=== PATIENT | male | born 1995 | race Caucasian/White ===

== ENCOUNTER 2017-08-04 13:42 | Inpatient (IN) | payer OTHER ==
[~2017-08-04] VITALS: Ht 177.8 cm; Wt 89.1 kg
[2017-08-04 15:17] LABS: MEAN CORPUSCULAR HGB CONC 35.7 g/dl (32.0-36.5); RED CELL DISTRIBUTION WIDTH 12.4 % (11.5-14.5); WHITE BLOOD COUNT 6.3 K/mm3 (4.0-10.0)
[2017-08-04 15:31] LABS: METHADONE URINE NEGATIVE (NEGATIVE)
[2017-08-04 15:34] LABS: ALBUMIN 3.8 GM/DL (3.2-5.2); ALBUMIN/GLOBULIN RATIO 1.31 (1.00-1.93); ALKALINE PHOSPHATASE 70 U/L (45-117); ALT/SGPT 19 U/L (12-78); ANION GAP 12 MEQ/L (8-16); AST/SGOT 11 U/L (15-37); BILIRUBIN,DIRECT 0.2 MG/DL (0.0-0.2); BILIRUBIN,TOTAL 0.7 MG/DL (0.2-1.0); BLOOD UREA NITROGEN 12 MG/DL (7-18); CALCIUM LEVEL 9.1 MG/DL (8.5-10.1); CARBON DIOXIDE LEVEL 25 MEQ/L (21-32); CHLORIDE LEVEL 106 MEQ/L (98-107); CREATININE FOR GFR 1.21 MG/DL (0.70-1.30); GLUCOSE, FASTING 88 MG/DL (70-105); POTASSIUM SERUM 3.8 MEQ/L (3.5-5.1); SODIUM LEVEL 143 MEQ/L (136-145); TOTAL PROTEIN 6.7 GM/DL (6.4-8.2)
[2017-08-04] MEDS ORDERED: MOM 30ML SUSPENSION UDC PO PRN (17:00)
[2017-08-04] MEDS ORDERED: CitaloPRAM (CeleXA) 20 MG TAB PO ONE (17:00)
[2017-08-04] MEDS ORDERED: ACETAMINOPHEN TAB 650MG DOSE (2X325MG) PO PRN (17:00)
[2017-08-04] MEDS ORDERED: MAALOX 30 ML SUSP *UDC PO PRN (17:00)
[2017-08-04 19:39] VITALS: BP 117/68
[2017-08-04] MEDS ORDERED: INFLUENZA QUADRIVALENT PF VACCINE 0.5ML SYRINGE (90686) IM ONE (20:30)
[2017-08-04] MEDS: traZODone 50 MG TAB PO PRN (22:45)
[2017-08-05 06:46] VITALS: BP 108/53
[2017-08-05] MEDS: CitaloPRAM (CeleXA) 20 MG TAB PO SCH (08:58)
--- NOTE | 2017-08-05 09:10 | HPEPDOC ---
Medical History and Physical Date of Admission Aug 04, 2017 at 16:35 History and Physical PCP: [facility] ATTENDING: Dr. Charlie Davis HPI: 22 yo M admitted to [facility] for unspecified depressive disorder, being medically examined today. No acute medical complaints today. Patient is using crutches related to left knee injury occurred during training approximately 3-4 weeks ago. He was seen by PCP with x-ray and MRI completed indicating minor meniscal tear. He currently uses crutches for ambulation. He states pain is controlled. He has not been having any erythema or edema. He has follow-up arranged. Denies any fevers, chills, weakness, fatigue, HOPPER, CP, SOB, cough, palpitations, abdominal pain, N/V/D or changes in bowel or bladder habits. PMHx: Depression Left knee meniscal tear PSHX: Denies SOCHX: Resides in: [place], from [facility] Marital Status: Single Kids: None Employment: Active duty Tobacco use: Denies ETOH: Denies Illicit Drugs: Denies IV Drug Use: Denies Tattoos done unprofessionally: Denies FAMHX: Mother: Alive, well Father: Alive, well Siblings: One brother Alive, well Children: None Unexpected deaths due to medical reasons: None. ROS: As noted in HPI, otherwise 11pt ROS of systems reviewed and unremarkable. PE: GEN: 22 yo M, appears stated age. Well-nourished, well developed. No acute distress. Alert and oriented x 3. Pleasant, interactive. HEENT: Normocephalic, atraumatic. Pupils are equal, round, and reactive to light. Extraocular movements are intact. No nystagmus appreciated. Sclera are nonicteric. Conjunctiva without injection. Nose midline. Nasal turbinates without bogginess. EACs both patent BL. TMs both visualized and bradley with good cone of light, no bulging or erythema. No facial asymmetry. Moist mucous membranes. Dentition fair. Pharynx pink and moist, no cobblestoning. Neck supple , trachea midline. No lymphadenopathy or thyromegaly appreciated. CHEST: Regular rate and rhythm, +S1, +S2 LUNGS: Clear to auscultation bilaterally. No wheezes, rales, or rhonchi. Breathing appears symmetric and easy. Patient is speaking in full sentences. No accessory muscle use. ABD: Round, soft, non-tender, non-distended. +Bowel sounds throughout. No rebound or guarding. No costovertebral angle tenderness. EXT: Pulses 2+ bilaterally dorsalis pedis and radial. No lower extremity edema appreciated. SKIN: Staves, dry, warm. Capillary refill <2sec. No rashes. NEURO: Alert and oriented x 3. Cranial nerves III-XII are intact. No focal deficits appreciated. Patient is using crutches for ambulation EKG: Pending. A&P: 22 yo M admitted to [facility] for unspecified depressive disorder 1. Psych. Plan per Psychiatry. Obtain baseline EKG to assure the safety of psychiatric medications as they can prolong the QT interval. 2. Follow up with PCP on discharge. 3. Left knee meniscal tear. Tylenol 650 mg every 6 hours as needed. Continue ambulation with crutches. Outpatient follow-up as arranged. 4. Staff member Lenin present throughout exam. Vital Signs Vital Signs Date Time Temp Pulse Resp B/P (MAP) Pulse Ox O2 Delivery O2 Flow Rate FiO2 08/05/17 06:46 96.3 59 16 108/53 (71) 08/04/17 19:39 97 Room Air Laboratory Data Labs 24H Laboratory Tests 2 08/04/17 14:50: Anion Gap 12, Calcium Level 9.1, Aspartate Amino Transf (AST/SGOT) 11L, Alanine Aminotransferase (ALT/SGPT) 19, Alkaline Phosphatase 70, Total Bilirubin 0.7, Direct Bilirubin 0.2, Total Protein 6.7, Albumin 3.8, Albumin/Globulin Ratio 1.31, Thyroid Stimulating Hormone (TSH) 1.290, Salicylates Level < 1.7L, Urine Amphetamines Screen NEGATIVE, Urine Benzodiazepines Screen NEGATIVE, Urine Opiates Screen NEGATIVE, Urine Methadone Screen NEGATIVE, Acetaminophen Level < 2.0L, Urine Barbiturates Screen NEGATIVE, Urine Phencyclidine Screen NEGATIVE, Urine Cocaine Metabolite Screen NEGATIVE, Urine Cannabinoids Screen NEGATIVE, Ethyl Alcohol Level 0.004 CBC/BMP Laboratory Tests 08/04/17 14:50 Red Blood Count 5.45, Mean Corpuscular Volume 87.0, Mean Corpuscular Hemoglobin 31.0, Mean Corpuscular Hemoglobin Concent 35.7, Red Cell Distribution Width 12.4 Home Medications No Active Prescriptions or Reported Meds Allergies Coded Allergies: No Known Allergies (Unverified , 08/04/17) Katherine Anglin Aug 05, 2017 09:10
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
[2017-08-05 18:00] VITALS: BP 120/58
[2017-08-06] MEDS: traZODone 50 MG TAB PO PRN ×2 (00:21→23:13)
[2017-08-06 07:00] VITALS: BP 113/54
[2017-08-06] MEDS: CitaloPRAM (CeleXA) 20 MG TAB PO SCH (08:53)
[2017-08-06] MEDS ORDERED: INFLUENZA QUADRIVALENT PF VACCINE 0.5ML SYRINGE (90686) IM ONE (09:00)
--- NOTE | 2017-08-06 11:55 | ECGEPIP ---
Stationary ECG Study [facility] Test Date: 2017-08-05 Pat Name: TR JERONIMO Department: Room: [place] [address] Gender: M Set Up Worker: ARABELLA : 1995 Requested By: Katherine Anglin Order Number: [id number] Reading MD: Charlie Davis Measurements Intervals Sandy Rate: 69 P: 6 MS: 141 QRS: 45 QRSD: 94 T: 32 QT: 359 QTc: 386 Interpretive Statements SINUS RHYTHM Comparison tracing not on file Electronically Signed On 08-06-2017 11:55:29 EDT by Charlie Davis
[2017-08-06 18:00] VITALS: BP 99/57
--- NOTE | 2017-08-06 18:31 | MHIPN ---
DATE: 08/06/2017 CHIEF COMPLAINT: Says feels a bit better. SUBJECTIVE: Seen for followup in the presence of staff. Says feels a bit better in that he is a little less depressed. Says had a nightmare about his dog. Appetite is fair. MENTAL STATUS EXAMINATION: He is neat. He is cooperative. He is on crutches. He is coherent. No agitation. Slight psychomotor retardation. Affect is restricted in range, with little reactivity. No suicidal thoughts at present, though says he has had them recently. Denies any plans of harming himself. No evidence of psychosis. Cognition grossly intact. Judgment and insight are fair at best. ASSESSMENT: Major depressive disorder. PLAN: Continue current care and observations. Encourage participation and activities in the unit. VITAL SIGNS: Blood pressure 113/54, pulse 64, temperature 97.4
[2017-08-07 07:00] VITALS: BP 106/55
[2017-08-07] MEDS: CitaloPRAM (CeleXA) 20 MG TAB PO SCH (08:11)
--- NOTE | 2017-08-07 16:39 | MHIPN ---
DATE: 08/07/2017 CHIEF COMPLAINT: He says he feels okay. SUBJECTIVE: He is seen for followup. He indicates he feels okay, but acknowledges he continues to feel depressed and anxious. He says he had broken sleep, did not feel rested. He has been trying to take a nap during the day. He says he was visited by his mother, and he liked that. MENTAL STATUS EXAMINATION: He is neat, appears somewhat tired. He is cooperative. He is coherent, though answers questions briefly, logically. Affect is restricted in range. Denies active suicidal thoughts or intents. No homicidal ideas or intents at present. No evidence of any psychosis. Cognition grossly intact. Insight and judgment fair. ASSESSMENT: Major depressive disorder. He continues to looked depressed, with poverty of speech. PLAN: He is to continue with current care, including the Celexa 20 mg daily. He is to be encouraged to participate in activities on the unit as tolerated. VITAL SIGNS: These are as listed. Blood pressure 106/55, pulse 78, temperature 98.
[2017-08-07 18:00] VITALS: BP 118/59
[2017-08-07] MEDS: traZODone 50 MG TAB PO PRN (22:58)
[2017-08-07] MEDS: hydrOXYzine 50 MG TAB PO PRN (23:27)
[2017-08-08 06:00] VITALS: BP 98/54
[2017-08-08] MEDS: CitaloPRAM (CeleXA) 20 MG TAB PO SCH (09:00)
--- NOTE | 2017-08-08 15:58 | IPN ---
DATE: 08/08/2017 Mr. Smith has been depressed several months. He has been not showing up for his duties. 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 During an evaluation of him, he was found with a knife and it was treated as a suicidal threat. He states he was thinking of slitting his throat. He is under stress because his parents are and they are in severe financial difficulties. He is having to send them significant amount of money and also gave them his signing bonus. In addition, he has broken up with his girlfriend Michelle, who moved away to another post. She was his first girlfriend. He is noted by others, that under stress he shuts down and seems unable to cope. He is presently under an article 15 by the [facility]. It is reported by his parents, to my understanding that they did not see his depression. In addition, he has lost his dog who was staying with his parents and was run over. He has been in the [employer] one year. He does not want to be in the [employer]. He has feelings of worthlessness, and is concerned about money troubles. His speech is slow. Thought process is slow. No loose associations. Judgment and insight are unremarkable. He is fully oriented. Mood is low. Affect is flat. He has a full fund of knowledge. PLAN: Medially I am going to increase his citalopram and we will evaluate his depression as we progress. Presently I would consider him suicidal and depressed. DIAGNOSES: Major depressive illness. Numerous stressors.
[2017-08-08 18:00] VITALS: BP 111/58
[2017-08-08] MEDS: traZODone 100 MG TAB PO PRN (23:07)
[2017-08-09 06:00] VITALS: BP 113/56
[2017-08-09] MEDS: CitaloPRAM (CeleXA) 20 MG TAB PO SCH (09:47)
--- NOTE | 2017-08-09 10:17 | IPN ---
DATE: 08/09/2017 Mr. Smith today is on his medication change of citalopram 40 and trazodone 100 mg for sleep. 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 He has numerous concerns, as mentioned yesterday, including his dislike for the [employer], his parents' financial problems, his brother's failure to be accepted into the [employer] league, his first girlfriend having changed bases and left, but to date most of his concerns were of his father's financial difficulties. He claimed to have a severe heaviness in his body and in his thoughts. MENTAL STATUS EXAMINATION: His speech was quiet. His thought process was low. He had no loose associations or abnormal psychotic thoughts. Judgment and insight were poor. He was fully oriented. No difficulties with recent or remote memory. His attention and concentration were adequate. There was no disturbance of language. His mood was low. His affect was extremely downcast and eye contact poor. IMPRESSION: 1. Major depressive illness. 2. Numerous stressors. No change in plans at this time.
[2017-08-09 18:00] VITALS: BP 110/64
[2017-08-09] MEDS: traZODone 100 MG TAB PO PRN (22:55)
[2017-08-10 06:57] VITALS: BP 126/91
[2017-08-10] MEDS: CitaloPRAM (CeleXA) 20 MG TAB PO SCH (08:39)
--- NOTE | 2017-08-10 15:09 | IPN ---
DATE: 08/10/2017 I met with Mr. Smith today, as well as discussed him with staff. The patient states that he is significantly feeling better. He states that he has not previously told many people that he is bisexual. He states that he has formed a friendship with one of the other patients, who he is attracted to. He states that since then he is happier that he woke up earlier, that his knee feels better. 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 I explained to the patient that in our experience these relationships do not seem to work out well. Nonetheless, the patient's mood was better, eye contact was improved. The patient apparently has stated that he will return to the [employer]. 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 MENTAL STATUS EXAMINATION: Speech was normal. No disturbance of thought process. No loose associations. No abnormal psychotic thoughts. Judgment and insight seem poor. He is fully oriented. Recent and remote memory intact. Attention and concentration intact. No disturbance of language. The patient has a full fund of knowledge. Mood is improved. Affect is brighter. DIAGNOSES: 1. Major depressive illness. 2. Rule out personality disorder.
[2017-08-10 18:26] VITALS: BP 124/65
[2017-08-10] MEDS: traZODone 100 MG TAB PO PRN (22:42)
[2017-08-11 07:05] VITALS: BP 121/67
[2017-08-11] MEDS: CitaloPRAM (CeleXA) 20 MG TAB PO SCH (09:09)
--- NOTE | 2017-08-11 13:10 | IPN ---
DATE: 08/11/2017 I met with Mr. Smith today. His mood seems less ebullient than yesterday. He states that it is because he believed that he will have been discharged. He states that nothing is bothering him. He has not been thinking much. His knee pain is not significant. Yesterday he revealed that he was bisexual and that he was interested in a relationship with a patient who left yesterday. Speech is slow. Thought process is mildly slow. No associations. No psychotic thoughts. Judgment and insight are poor. Orientation is full in three spheres. No difficulties with recent or remote memory. Attention and concentration are intact. No disturbances of language. Full fund of knowledge. Mood is fair. Affect is neutral. PLAN: Discuss with discharge team tomorrow whether in fact to transfer to half-way treatment based on our concern about his general overall condition and difficulties that he has had and presently in the service. He is presently on citalopram 40 mg daily. DIAGNOSES: 1. Major depression. 2. Personality disorder, not otherwise specified.
[2017-08-11 18:00] VITALS: BP 105/56
[2017-08-11] MEDS: traZODone 100 MG TAB PO PRN (22:16)
[2017-08-12 06:24] VITALS: BP 145/81
[2017-08-12] MEDS: CitaloPRAM (CeleXA) 20 MG TAB PO SCH (09:12)
[2017-08-12] MEDS: hydrOXYzine 50 MG TAB PO PRN (14:12)
--- NOTE | 2017-08-12 14:33 | MHIPN ---
DATE: 08/12/2017 Mr. Smith will be meeting today with his [employer]. Our concerns are that he is stating all is well since having met another patient on the unit and publicly declaring his bisexuality. However, our concerns are that he seems to think many things will change when he returns to [place] regarding his assignments, his jobs and his work. For this reason, we initiated that he meet with [facility] [employer] over these issues. He is presently taking citalopram 40 mg, trazodone for sleep as needed, and Atarax 50 mg every 4 hours as needed. MENTAL STATUS EXAMINATION: Speech is normal, not quiet. No disturbance of thought process. No loose associations. No psychotic thoughts. Judgment and insight are fair. Orientation is full in three spheres. Recent and remote memory intact. Attention and concentration intact. He has a full fund of knowledge. Mood is neutral. Affect is neutral. Noted that the patient also has thought about limiting the amount of money he sends his family who have had financial difficulties. DIAGNOSIS: Major depression. Personality disordered traits. Discharge planning will be based on results of [facility] meeting.
[2017-08-12 14:48] VITALS: BP_SYST 136; BP_DIAS 65; BP_DIAS 66
[2017-08-12 18:26] VITALS: BP 136/65
[2017-08-12] MEDS: traZODone 100 MG TAB PO PRN (22:49)
[2017-08-13 07:14] VITALS: BP 102/53
[2017-08-13] MEDS: CitaloPRAM (CeleXA) 20 MG TAB PO SCH (09:33)
--- NOTE | 2017-08-13 13:29 | MHIPN ---
DATE: 08/13/2017 I met with Gordon Smith today. Yesterday, I placed him on a one-to-one following his meeting with his chain of command. Today, he denies any suicidal ideation or intent, and I removed him from one-to-one. 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 He is presently on citalopram 40 mg. MENTAL STATUS EXAMINATION: The patient is downcast and sad. Speech is normal. Thought processes are not indicating any disorder. No loose associations or psychotic thoughts. Judgment and insight are poor. He is fully oriented. Recent and remote memory intact. Attention and concentration intact. No disturbance of language. He has a full fund of knowledge. Mood is low and affect is sad. DIAGNOSIS: Major depression. Personality disorder. At this point, I am not comfortable sending him back to [place] and I am hoping that he will agree to long-term treatment. 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
[2017-08-13 18:20] VITALS: BP 110/60
[2017-08-13] MEDS: traZODone 100 MG TAB PO PRN (23:59)
[2017-08-14 06:27] VITALS: BP 104/50
[2017-08-14] MEDS: CitaloPRAM (CeleXA) 20 MG TAB PO SCH (09:18)
[2017-08-14 18:42] VITALS: BP 130/60
[2017-08-14] MEDS: traZODone 100 MG TAB PO PRN (23:04)
[2017-08-15 06:45] VITALS: BP 112/60
[2017-08-15] MEDS: CitaloPRAM (CeleXA) 20 MG TAB PO SCH (08:47)
--- NOTE | 2017-08-15 12:49 | MHIPN ---
DATE: 08/15/2017 Discussed patient with staff. The patient had apparently a family meeting this weekend where he discussed his bisexuality with parents who rejected that. The patient states he has a "plan". He plans to do puzzles, call his friends more, and [place]. He states his mother and father not accepting of his claim of bisexuality will nonetheless "always love him". My impression is that this young man is exceptionally unstable and needs to be going to a longer term care based on his history and his presentation and progress here on the unit. He is presently on citalopram and is having no difficulties with it. Speech is normal. No disturbance of thought processes. Judgment and insight are poor. No loose associations. No psychotic thoughts. He is fully oriented. Recent and remote memory are intact. He has no difficulties with attention and concentration. He has a full fund of knowledge. Mood is low. Affect is sad. The patient is no longer suicidal and has been taken off of one-to-one. IMPRESSION: Major depression. PLAN: Encourage long treatment.
[2017-08-15 18:00] VITALS: BP 135/77
[2017-08-15] MEDS: traZODone 100 MG TAB PO PRN (23:01)
[2017-08-16 06:20] VITALS: BP 113/56
[2017-08-16] MEDS: CitaloPRAM (CeleXA) 20 MG TAB PO SCH (08:55)
--- NOTE | 2017-08-16 11:26 | MHIPN ---
DATE: 08/16/2017 Gordon Smith is extremely downcast. He states he is upset people are leaving. He feels he is losing friends. He states he is feeling very alone. He states his sleep is very poor and he did not eat breakfast. He is now agreeing that he thinks he needs long term care pharmacist treatment. He is very depressed. He states in middle school he was extremely depressed and then had years of feeling good. He states now his moods change rapidly in response to situations. He is presently on citalopram 40 mg. There has been no significant improvement in his mood. We are agreeing he needs long term care pharmacist treatment. Speech is slow. Thought process is demonstrating poverty of thought. No loose associations. No psychotic thoughts. Judgment and insight poor. Orientation in three spheres is present. Recent and remote memory intact. No disturbance of attention and concentration. Affect sad, downcast, with poor eye contact. No disturbance of language. Fund of knowledge is fair. Mood is low. IMPRESSION: Major depression. Personality disorder. Agree with prison treatment.
[2017-08-16] MEDS: hydrOXYzine 50 MG TAB PO PRN ×2 (13:33→23:16)
[2017-08-16 18:00] VITALS: BP 145/88
[2017-08-16] MEDS: traZODone 100 MG TAB PO PRN (22:57)
[2017-08-17 07:01] VITALS: BP 88/50
[2017-08-17] MEDS: CitaloPRAM (CeleXA) 20 MG TAB PO SCH (09:11)
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
[2017-08-17 18:00] VITALS: BP 115/65
[2017-08-17] MEDS: traZODone 100 MG TAB PO PRN (23:02)
[2017-08-18 06:21] VITALS: BP 117/59
[2017-08-18] MEDS: CitaloPRAM (CeleXA) 20 MG TAB PO SCH (08:50)
--- NOTE | 2017-08-18 15:26 | MHIPN ---
DATE: 08/18/2017 Gordon Smith continues downcast. He states he has been trying to call his mother and she will not answer his phone call. He will not call his father. He is continuing to struggle with what he considers identity issues since he was brought up with strict rules against homosexuality and he has declared to his parents that he is bisexual. I see no particular mood improvement. The patient is downcast. Our plan is to send him to long-term care. Speech is slow. Thought processes are slow. No loose associations. No psychotic thoughts. Judgment and insight are fair. He is fully oriented. Recent and remote memory intact. Attention and concentration good. No disturbance of language. Full fund of knowledge. Mood is low. Affect is sad. DIAGNOSIS: Major depressive illness.
[2017-08-18] MEDS ORDERED: CELE20TA PO (17:41)
[2017-08-18 18:00] VITALS: BP 131/67
--- NOTE | 2017-08-18 18:02 | MHDS ---
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 No deployment and has no children. Originally from [place]. History of depression and bullying in middle school, was in psychotherapy for 2 months, no psychotropic medications. He reported he was going through numerous stressors, including his parents going through a divorce, one month his father being jobless, his mother getting laid off today, and concerns about his brother who has joined the [employer], who was kicked out of hockey. His depression is characterized by feeling hopeless, decrease in appetite, decrease in energy, oversleeping, late being to work, and being placed on an Article 15 for extra duties, feeling guilty about his girlfriend who accused him of not being "invested in the relationship." Took his personal knife to work and was sitting with that knife with [employer]. The patient was thinking about hurting himself with that knife. COURSE ON THE UNIT: He maintained depression throughout his entire stay. At one point, he did cheer up when he began to have a relationship with another male on the unit, at which time he declared that he was bisexual and had been hiding it for many years. He had a visit with his parents where he openly stated he was bisexual and apparently, according to him, they rejected him and now do not answer their phones. Patient began to think that many things would change if he returned to [place]. For that reason, we had him meet with [employer] to discuss his duties. He was placed, on 08/13/2017, on a one-to-one following his meeting with [employer] and later denied suicidal ideation. He stated he wanted to leave the [employer] and we suggested long-term care. He was placed on Celexa 40 mg. He began to come up with solutions for his problems; that he would do more puzzles, call his friends more, [place]. He continued to look profoundly depressed and his momentary improvement forming a relationship with a patient on the unit seemed to disappear. He became upset that people were leaving that he had made friends with and continued to be downcast. He continued on citalopram 40 mg and agreed to our suggestion that he seek long-term care. DIAGNOSES: Major depression. Sexual identity confusion. Numerous stressors. His CBC was unremarkable, serum chemistry was unremarkable. Toxicology screen was positive for 0.[address] Anglin, he was placed on Tylenol 650 mg every 6 hours and continued to ambulate with crutches due to a left knee meniscal tear. DISCHARGE DIAGNOSES: As mentioned above. DISCHARGE MENTAL STATUS EXAMINATION: Speech is slow. Thought processes slow. No loose hallucinations. No psychotic thoughts. Judgment and insight are poor. Patient is fully oriented. No disturbance of recent and remote memory. Attention and concentration are poor. No disturbance of language. Full fund of knowledge. Mood is low. Affect is sad. The patient is to be discharged back to chain of command and will be transported to a long-term hospital as per chain of command.
[2017-08-18] MEDS: traZODone 100 MG TAB PO PRN (22:29)
[2017-08-19] MEDS: CitaloPRAM (CeleXA) 20 MG TAB PO SCH (03:52)
== END 2017-08-19 04:30 | DRG 881 ==
LOC: EDSEX 13:42 → M ED 13:42 → M ED INP 16:35 → M PSY 19:15
PROVIDERS: ADMIT Psychiatry & Neurology Psychiatry; ATTEND Psychiatry & Neurology Child & Adolescent Psychiatry
DX: F32.9 Major depressive disorder, single episode, unspecified (principal); S83.207D Unspecified tear of unspecified meniscus, current injury, left knee, subsequent encounter; X58.XXXD Exposure to other specified factors, subsequent encounter; Y99.9 Unspecified external cause status

== ENCOUNTER 2017-10-20 13:23 | Inpatient (IN) | payer OTHER ==
[~2017-10-20] VITALS: Ht 177.8 cm; Wt 88.0 kg
[~2017-10-20 13:23] MED LIST: CELE20TA PO
[2017-10-20] MEDS ORDERED: SUDATAB18 PO (13:48)
[2017-10-20] MEDS ORDERED: PRAZ1CAP PO (13:48)
[2017-10-20] MEDS ORDERED: IBUP1TAB7 PO (13:48)
[2017-10-20] MEDS ORDERED: TRAZ1TAB14 PO ×2 (13:48→16:33)
[2017-10-20 14:05] LABS: MEAN CORPUSCULAR HGB CONC 35.1 g/dl (32.0-36.5); MEAN CORPUSCULAR VOLUME 85.4 fl (80.0-96.0); PLATELET COUNT, AUTOMATED 202 10^3/uL (150-450); RED CELL DISTRIBUTION WIDTH 12.4 % (11.5-14.5); WHITE BLOOD COUNT 7.4 10^3/uL (4.0-10.0)
[2017-10-20 14:36] LABS: ALBUMIN 3.7 GM/DL (3.2-5.2); ALBUMIN/GLOBULIN RATIO 1.16 (1.00-1.93); ALKALINE PHOSPHATASE 69 U/L (45-117); ALT/SGPT 18 U/L (12-78); ANION GAP 7 MEQ/L (8-16); AST/SGOT 11 U/L (7-37); BILIRUBIN,DIRECT 0.2 MG/DL (0.0-0.2); BILIRUBIN,TOTAL 0.6 MG/DL (0.2-1.0); BLOOD UREA NITROGEN 13 MG/DL (7-18); CALCIUM LEVEL 8.9 MG/DL (8.5-10.1); CARBON DIOXIDE LEVEL 26 MEQ/L (21-32); CHLORIDE LEVEL 108 MEQ/L (98-107); CREATININE FOR GFR 1.18 MG/DL (0.70-1.30); GLUCOSE, FASTING 108 MG/DL (70-105); POTASSIUM SERUM 3.8 MEQ/L (3.5-5.1); SODIUM LEVEL 141 MEQ/L (136-145); TOTAL PROTEIN 6.9 GM/DL (6.4-8.2)
[2017-10-20 15:14] LABS: METHADONE URINE NEGATIVE (NEGATIVE)
[2017-10-20] MEDS ORDERED: MAALOX 30 ML SUSP *UDC PO PRN (16:30)
[2017-10-20] MEDS ORDERED: traZODone 50 MG TAB PO PRN (16:30)
[2017-10-20] MEDS ORDERED: ACETAMINOPHEN TAB 650MG DOSE (2X325MG) PO PRN (16:30)
[2017-10-20] MEDS ORDERED: MOM 30ML SUSPENSION UDC PO PRN (16:30)
[2017-10-20] MEDS ORDERED: CITA20TA4 PO (16:33)
[2017-10-20] MEDS ORDERED: PRAZ2CAP PO (16:33)
[2017-10-20] MEDS ORDERED: PSEU60TA PO (16:33)
[2017-10-20] MEDS ORDERED: VOLT1GEL15 TOP (16:33)
[2017-10-20] MEDS ORDERED: IBUP1TAB6 PO (16:33)
[2017-10-20] MEDS ORDERED: FLON1SPR (16:33)
[2017-10-20 20:20] VITALS: BP 130/82
[2017-10-20] MEDS ORDERED: IBUPROFEN 600 MG TAB PO PRN (22:00)
[2017-10-20] MEDS: PRAZOSIN 1 MG CAP PO SCH (22:32)
[2017-10-20] MEDS: traZODone 50 MG TAB PO SCH (22:32)
[2017-10-21 06:13] VITALS: BP 113/57
[2017-10-21] MEDS ORDERED: CitaloPRAM (CeleXA) 20 MG TAB PO SCH (09:00)
[2017-10-21] MEDS: IBUPROFEN 600 MG TAB PO SCH (09:37)
--- NOTE | 2017-10-21 09:43 | HPEPDOC ---
[facility] Medical History & Physical Date of Admission Oct 20, 2017 History and Physical PCP: [facility] ATTENDING: Dr. Charlie Davis HPI: 22 yo M admitted to [facility] for unspecified depressive disorder, being medically examined today. The patient was most recently admitted to [facility] 08/04/17 through 08/19/17. History is taken from the chart. Patient is declining to participate with history or physical exam at this time. There are no voice complaints or reports of fevers, chills, weakness, fatigue, HOPPER, CP, SOB, cough, palpitations, abdominal pain, N/V/D or changes in bowel or bladder habits. PMHx: Depression History of Left knee meniscal tear PSHX: Denies SOCHX: Resides in: [place], from [facility] Marital Status: Single Kids: None Employment: Active duty Tobacco use: Denies ETOH: Denies Illicit Drugs: Denies IV Drug Use: Denies Tattoos done unprofessionally: Denies FAMHX: Mother: Alive, well Father: Alive, well Siblings: One brother Alive, well Children: None Unexpected deaths due to medical reasons: None. ROS: Patient declines to provide history at this time. PE: Patient declines to participate with physical exam at this time. EK08/05/17. SINUS RHYTHM A&P: 22 yo M admitted to [facility] for unspecified depressive disorder 1. Psych. Plan per Psychiatry. EKG on file. 2. Follow up with PCP on discharge. 3. History of Left knee meniscal tear. Patient remains on ibuprofen 600 mg by mouth 1 daily. Tylenol 650 mg every 6 hours as needed. Outpatient follow-up as arranged. 4. Staff member Ed assisted in attempting exam. Vital Signs Vital Signs Date Time Temp Pulse Resp B/P (MAP) Pulse Ox O2 Delivery O2 Flow Rate FiO2 10/21/17 06:13 98.3 68 12 113/57 (75) 10/20/17 20:25 98 Room Air Laboratory Data Labs 24H Laboratory Tests 2 10/20/17 13:50: Nucleated Red Blood Cells % (auto) 0.0, Anion Gap 7L, Calcium Level 8.9, Aspartate Amino Transf (AST/SGOT) 11, Alanine Aminotransferase (ALT/SGPT) 18, Alkaline Phosphatase 69, Total Bilirubin 0.6, Direct Bilirubin 0.2, Total Protein 6.9, Albumin 3.7, Albumin/Globulin Ratio 1.16, Thyroid Stimulating Hormone (TSH) 0.946, Salicylates Level < 1.7L, Urine Amphetamines Screen NEGATIVE, Urine Benzodiazepines Screen NEGATIVE, Urine Opiates Screen NEGATIVE, Urine Methadone Screen NEGATIVE, Acetaminophen Level < 2.0L, Urine Barbiturates Screen NEGATIVE, Urine Phencyclidine Screen NEGATIVE, Urine Cocaine Metabolite Screen NEGATIVE, Urine Cannabinoids Screen NEGATIVE, Ethyl Alcohol Level < 0.003 CBC/BMP Laboratory Tests 10/20/17 13:50 Red Blood Count 5.40, Mean Corpuscular Volume 85.4, Mean Corpuscular Hemoglobin 30.0, Mean Corpuscular Hemoglobin Concent 35.1, Red Cell Distribution Width 12.4 Home Medications Scheduled Citalopram Hydrobromide (Citalopram Hydrobromide) 20 Mg Tab, 20 MG PO DAILY Ibuprofen (Ibuprofen) 600 Mg Tab, 600 MG PO DAILY Prazosin Hcl (Prazosin HCl) 2 Mg Cap, 4 MG PO QHS Trazodone HCl (Trazodone HCl) 150 Mg Tab, 150 MG PO QHS Scheduled PRN (Voltaren) 1 % Gel, 1 DOSE TOP QID PRN for PAIN apply to knees (Flonase Allergy Relief) 50 Mcg/Act Spr, 2 SPRAYS NA DAILY PRN for NASAL CONGESTION Ibuprofen (Ibuprofen) 600 Mg Tab, 600 MG PO DAILY PRN for PAIN Pseudoephedrine (Pseudoephedrine HCl) 60 Mg Tab, 60 MG PO Q6H PRN for NASAL CONGESTION Allergies Coded Allergies: No Known Allergies (Unverified , 08/04/17) Katherine Anglin Oct 21, 2017 09:43
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
[2017-10-21 18:00] VITALS: BP 125/61
[2017-10-21] MEDS: PRAZOSIN 1 MG CAP PO SCH (21:19)
[2017-10-21] MEDS: traZODone 50 MG TAB PO SCH (21:20)
[2017-10-22 06:57] VITALS: BP 135/59
[2017-10-22] MEDS: IBUPROFEN 600 MG TAB PO SCH (10:03)
[2017-10-22] MEDS: CitaloPRAM (CeleXA) 10 MG TABLET PO SCH (10:04)
--- NOTE | 2017-10-22 17:58 | MHIPN ---
DATE: 10/22/2017 CHIEF COMPLAINT: Says feels okay. SUBJECTIVE: Seen for followup in the presence of staff. Says has been feeling okay but that he thinks about his problems, though suggests is less anxious, because he is away from them directly. Sleep is broken. MENTAL STATUS EXAMINATION: He is lying in bed, cooperative. Affect is restricted in range but shows reactivity. Is coherent. No evidence of any thoughts of harming himself at present. Denies any suicidal thoughts or intents. No homicidal ideas or intents. No current evidence of any psychosis. Cognition grossly intact. Judgment is questionable. Insight fair. ASSESSMENT: Major depressive disorder. PLAN: Continue current care and observations. Encourage participation in activities in the unit.
[2017-10-22 18:00] VITALS: BP 129/63
[2017-10-22] MEDS: PRAZOSIN 1 MG CAP PO SCH (23:50)
[2017-10-22] MEDS: traZODone 50 MG TAB PO SCH (23:51)
[2017-10-23 06:39] VITALS: BP 115/55
[2017-10-23] MEDS: IBUPROFEN 600 MG TAB PO SCH (09:32)
[2017-10-23] MEDS: CitaloPRAM (CeleXA) 10 MG TABLET PO SCH (09:32)
[2017-10-23 18:00] VITALS: BP 122/61
--- NOTE | 2017-10-23 21:14 | MHIPN ---
DATE: 10/23/2017 CHIEF COMPLAINT: Says feels a bit better. SUBJECTIVE: Seen for followup. Indicates feels a bit better, and that he slept a bit better as well, has been out and about, and has eaten well. MENTAL STATUS EXAMINATION: Neat, cooperative. Affect is a bit broader. He is coherent. No agitation. Denies any thoughts of harming himself or anyone else. No evidence of any psychosis at present. Cognition grossly intact. Judgment is questionable. Insight is fair. ASSESSMENT: Major depressive disorder. PLAN: He is to continue with his current care, and participate in activities in the unit. He will be seeing the assigned treatment team tomorrow.
[2017-10-23] MEDS: traZODone 50 MG TAB PO SCH (22:55)
[2017-10-23] MEDS: PRAZOSIN 1 MG CAP PO SCH (22:55)
[2017-10-24 07:00] VITALS: BP 121/58
[2017-10-24] MEDS: CitaloPRAM (CeleXA) 10 MG TABLET PO SCH (09:34)
[2017-10-24] MEDS: IBUPROFEN 600 MG TAB PO SCH (09:34)
[2017-10-24 18:00] VITALS: BP 106/53
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
[2017-10-24] MEDS: traZODone 50 MG TAB PO SCH (23:02)
[2017-10-24] MEDS: PRAZOSIN 1 MG CAP PO SCH (23:04)
[2017-10-25 07:00] VITALS: BP 98/54
[2017-10-25] MEDS: IBUPROFEN 600 MG TAB PO SCH (09:15)
[2017-10-25] MEDS: CitaloPRAM (CeleXA) 20 MG TAB PO SCH (09:15)
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
[2017-10-25 18:00] VITALS: BP 123/65
[2017-10-25] MEDS: QUEtiapine FUMARATE 100 MG TAB PO SCH (23:17)
[2017-10-25] MEDS: PRAZOSIN 1 MG CAP PO SCH (23:18)
[2017-10-26 06:45] VITALS: BP 133/56
[2017-10-26] MEDS: CitaloPRAM (CeleXA) 20 MG TAB PO SCH (09:56)
[2017-10-26] MEDS: IBUPROFEN 600 MG TAB PO SCH (09:57)
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
[2017-10-26 18:00] VITALS: BP 131/70
[2017-10-26 22:39] VITALS: BP 132/76
[2017-10-26] MEDS: QUEtiapine FUMARATE 100 MG TAB PO SCH (22:39)
[2017-10-26] MEDS: PRAZOSIN 1 MG CAP PO SCH (22:39)
[2017-10-27 06:37] VITALS: BP 112/53
[2017-10-27] MEDS: CitaloPRAM (CeleXA) 20 MG TAB PO SCH (09:34)
[2017-10-27] MEDS: IBUPROFEN 600 MG TAB PO SCH (09:35)
[2017-10-27] MEDS ORDERED: CELE20TA PO (11:46)
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
== END 2017-10-27 14:20 | disposition home or self-care (01) | DRG 885 ==
LOC: M ED 13:23 → M ED INP 16:20 → M PSY 20:27
PROVIDERS: ADMIT Psychiatry & Neurology Psychiatry; ATTEND Psychiatry & Neurology Psychiatry
DX: F33.2 Major depressive disorder, recurrent severe without psychotic features (principal); R45.851 Suicidal ideations; F60.3 Borderline personality disorder; Z79.899 Other long term (current) drug therapy

== ENCOUNTER → 2017-12-12 | Outpatient (CLI) | payer OTHER | LOC: M CARPUL 08:36 | DX: R55 Syncope and collapse (principal) ==

== ENCOUNTER 2017-12-19 14:40 | Inpatient (IN) | payer OTHER ==
[2017-12-19 15:40] LABS: HEMATOCRIT 46.5 % (42.0-52.0); HEMOGLOBIN 16.3 g/dl (14.0-18.0); MEAN CORPUSCULAR HEMOGLOBIN 29.7 pg (27.0-33.0); MEAN CORPUSCULAR HGB CONC 35.1 g/dl (32.0-36.5); MEAN CORPUSCULAR VOLUME 84.7 fl (80.0-96.0); PLATELET COUNT, AUTOMATED 223 10^3/uL (150-450); RED BLOOD COUNT 5.49 10^6/uL (4.30-6.10); RED CELL DISTRIBUTION WIDTH 12.5 % (11.5-14.5); WHITE BLOOD COUNT 6.3 10^3/uL (4.0-10.0)
[2017-12-19 15:57] LABS: AMPHETAMINES LEVEL URINE NEGATIVE (NEGATIVE); BARBITURATES URINE NEGATIVE (NEGATIVE); BENZODIAZEPINES URINE NEGATIVE (NEGATIVE); CANNABINOIDS URINE NEGATIVE (NEGATIVE); COCAINE METABOLITE URINE NEGATIVE (NEGATIVE); METHADONE URINE NEGATIVE (NEGATIVE); OPIATES URINE NEGATIVE (NEGATIVE); PHENCYCLIDINE URINE NEGATIVE (NEGATIVE)
[2017-12-19 16:04] LABS: ALBUMIN 3.9 GM/DL (3.2-5.2); ALBUMIN/GLOBULIN RATIO 1.26 (1.00-1.93); ALKALINE PHOSPHATASE 62 U/L (45-117); ALT/SGPT 18 U/L (12-78); ANION GAP 5 MEQ/L (8-16); AST/SGOT 11 U/L (7-37); BILIRUBIN,DIRECT 0.1 MG/DL (0.0-0.2); BILIRUBIN,TOTAL 0.5 MG/DL (0.2-1.0); BLOOD UREA NITROGEN 17 MG/DL (7-18); CALCIUM LEVEL 8.7 MG/DL (8.5-10.1); CARBON DIOXIDE LEVEL 28 MEQ/L (21-32); CHLORIDE LEVEL 108 MEQ/L (98-107); CREATININE FOR GFR 1.14 MG/DL (0.70-1.30); ETHYL ALCOHOL (ETHANOL) 0.004 % (0.000-0.010); GLUCOSE, FASTING 89 MG/DL (70-100); SALICYLATE LEVEL < 1.7 MG/DL (5.0-30.0); SODIUM LEVEL 141 MEQ/L (136-145)
[2017-12-19 16:09] LABS: ACETAMINOPHEN LEVEL < 2.0 UG/ML (10.0-30.0)
[2017-12-19] MEDS ORDERED: MAALOX 30 ML SUSP *UDC PO (19:15)
[2017-12-19] MEDS ORDERED: MOM 30ML SUSPENSION UDC PO (19:15)
[2017-12-20] MEDS ORDERED: hydrOXYzine 50 MG TAB PO (13:15)
[2017-12-20] MEDS: traZODone 50 MG TAB PO (21:39)
[2017-12-20] MEDS: PRAZOSIN 1 MG CAP PO (21:40)
[2017-12-21] MEDS: ACETAMINOPHEN TAB 650MG DOSE (2X325MG) PO (07:29)
[2017-12-21] MEDS: CitaloPRAM (CeleXA) 20 MG TAB PO (08:59)
[2017-12-21] MEDS: PRAZOSIN 1 MG CAP PO (21:53)
[2017-12-21] MEDS: traZODone 100 MG TAB PO (21:53)
[2017-12-22] MEDS: CitaloPRAM (CeleXA) 20 MG TAB PO (09:54)
[2017-12-22] MEDS: PRAZOSIN 1 MG CAP PO (21:56)
[2017-12-22] MEDS: DOXEPIN 25 MG CAP PO (21:57)
[2017-12-23] MEDS: CitaloPRAM (CeleXA) 20 MG TAB PO (10:03)
[2017-12-23] MEDS: DOXEPIN 25 MG CAP PO (22:09)
[2017-12-23] MEDS: PRAZOSIN 1 MG CAP PO (22:10)
[2017-12-24] MEDS: CitaloPRAM (CeleXA) 20 MG TAB PO (09:10)
[2017-12-24] MEDS: IBUPROFEN 400 MG TAB PO ×2 (10:23→22:50)
[2017-12-24] MEDS: DOXEPIN 25 MG CAP PO (22:48)
[2017-12-24] MEDS: PRAZOSIN 1 MG CAP PO (22:49)
[2017-12-25] MEDS: CitaloPRAM (CeleXA) 20 MG TAB PO (08:40)
[2017-12-25] MEDS: DOXEPIN 25 MG CAP PO (21:38)
[2017-12-25] MEDS: PRAZOSIN 1 MG CAP PO (21:41)
[2017-12-26] MEDS: CitaloPRAM (CeleXA) 20 MG TAB PO (09:38)
== END 2017-12-26 14:00 | disposition home or self-care (01) | DRG 885 ==
LOC: M ED 14:40 → M ED INP 19:11 → M PSY 20:25
DX: F33.2 Major depressive disorder, recurrent severe without psychotic features (principal); R45.851 Suicidal ideations; F43.10 Post-traumatic stress disorder, unspecified; Z79.899 Other long term (current) drug therapy; F17.210 Nicotine dependence, cigarettes, uncomplicated; M25.562 Pain in left knee

== ENCOUNTER 2018-03-29 16:32 | Inpatient (IN) | payer OTHER ==
[2018-03-29 17:14] LABS: HEMATOCRIT 46.5 % (42.0-52.0); HEMOGLOBIN 16.7 g/dl (13.5-17.5); MEAN CORPUSCULAR HEMOGLOBIN 30.7 pg (27.0-33.0); MEAN CORPUSCULAR HGB CONC 35.9 g/dl (32.0-36.5); MEAN CORPUSCULAR VOLUME 85.5 fl (80.0-96.0); PLATELET COUNT, AUTOMATED 211 10^3/uL (150-450); RED BLOOD COUNT 5.44 10^6/uL (4.30-6.10); RED CELL DISTRIBUTION WIDTH 12.6 % (11.5-14.5); WHITE BLOOD COUNT 8.6 10^3/uL (4.0-10.0)
[2018-03-29 17:47] LABS: ACETAMINOPHEN LEVEL < 2.0 UG/ML (10.0-30.0); ALBUMIN 3.9 GM/DL (3.2-5.2); ALBUMIN/GLOBULIN RATIO 1.18 (1.00-1.93); ALKALINE PHOSPHATASE 62 U/L (45-117); ALT/SGPT 81 U/L (12-78); ANION GAP 5 MEQ/L (8-16); AST/SGOT 32 U/L (7-37); BILIRUBIN,DIRECT 0.1 MG/DL (0.0-0.2); BILIRUBIN,TOTAL 0.5 MG/DL (0.2-1.0); BLOOD UREA NITROGEN 17 MG/DL (7-18); CALCIUM LEVEL 9.1 MG/DL (8.5-10.1); CARBON DIOXIDE LEVEL 28 MEQ/L (21-32); CHLORIDE LEVEL 109 MEQ/L (98-107); CREATININE FOR GFR 1.22 MG/DL (0.70-1.30); ETHYL ALCOHOL (ETHANOL) 0.003 % (0.000-0.010); GLUCOSE, FASTING 93 MG/DL (70-100); POTASSIUM SERUM 3.9 MEQ/L (3.5-5.1); SALICYLATE LEVEL < 1.7 MG/DL (5.0-30.0); SODIUM LEVEL 142 MEQ/L (136-145); TOTAL PROTEIN 7.2 GM/DL (6.4-8.2)
[2018-03-29 17:54] LABS: AMPHETAMINES LEVEL URINE NEGATIVE (NEGATIVE); BARBITURATES URINE NEGATIVE (NEGATIVE); BENZODIAZEPINES URINE NEGATIVE (NEGATIVE); CANNABINOIDS URINE NEGATIVE (NEGATIVE); COCAINE METABOLITE URINE NEGATIVE (NEGATIVE); METHADONE URINE NEGATIVE (NEGATIVE); OPIATES URINE NEGATIVE (NEGATIVE); PHENCYCLIDINE URINE NEGATIVE (NEGATIVE)
[2018-03-29] MEDS ORDERED: MAALOX 30 ML SUSP *UDC PO (19:15)
[2018-03-29] MEDS ORDERED: ACETAMINOPHEN TAB 650MG DOSE (2X325MG) PO (19:15)
[2018-03-29] MEDS ORDERED: MOM 30ML SUSPENSION UDC PO (19:15)
[2018-03-29] MEDS ORDERED: traZODone 50 MG TAB PO (19:15)
[2018-03-31 09:48] LABS: HEPATITIS B SURFACE ANTIGEN NEGATIVE (NEGATIVE)
[2018-03-31 10:15] LABS: HEPATITIS B CORE ANTIBODY IGM NEGATIVE (NEGATIVE)
[2018-03-31 10:15] LABS: HEPATITIS C VIRUS ABY INDEX < 0.0 INDEX (<0.8)
[2018-03-31 10:17] LABS: HEPATITIS A ANTIBODY IGM NEGATIVE (NEGATIVE)
== END 2018-03-30 12:40 | disposition home or self-care (01) | DRG 881 ==
LOC: M ED 16:32 → M ED INP 19:08 → M PSY 22:50
PROVIDERS: Psychiatry & Neurology Psychiatry
DX: F34.1 Dysthymic disorder (principal); F32.9 Major depressive disorder, single episode, unspecified; F60.3 Borderline personality disorder; F17.200 Nicotine dependence, unspecified, uncomplicated; Z79.899 Other long term (current) drug therapy